=== PATIENT | female | born 1950 | race Caucasian/White ===

== ENCOUNTER 2018-09-13 11:39 | Outpatient (CLI) | payer MEDICARE ==
--- NOTE | 2018-09-13 14:43 | ULT ---
CAROTID DOPPLER ULTRASOUND: HISTORY: Bilateral carotid artery disease. TECHNIQUE: Wynn scale, color flow, and spectral Doppler imaging of the extracranial carotid artery systems is pe rformed bilaterally. FINDINGS: There is plaque formation on either side. There is occlusion of the right internal carotid artery, w ithout detection of flow. The peak systolic velocity in the left ICA measures 91 cm/s with an end-diastolic velocity of 29 cm/s . Antegrade flow is demonstrated in the left vertebral artery. There is decreased flow but appears to be antegrade in the right vertebral artery. IMPRESSION: Occlusion of the right internal carotid artery. POS: [facility]
== END 2018-09-13 11:40 | disposition home or self-care (01) ==
LOC: NAV ULT 11:39
PROVIDERS: ATTEND Family Medicine
DX: Z00.00 Encounter for general adult medical examination without abnormal findings (principal); I77.9 Disorder of arteries and arterioles, unspecified; I65.21 Occlusion and stenosis of right carotid artery
CPT/HCPCS: 93880

== ENCOUNTER 2019-10-01 08:45 | Outpatient (CLI) | payer MEDICARE ==
--- NOTE | 2019-10-01 10:22 | ULT ---
Carotid duplex sonogram HISTORY: Vascular disease. Occlusion of the internal carotid artery. FINDINGS: Prominent plaque. Color and spectral Doppler flow demonstrated within the common carotid artery and e xternal carotid artery. Echogenic material again fills the right internal carotid artery without flow visible. Right vertebral artery not visualized. Left: Prominent plaque throughout. Color and spectral Doppler evaluation, peak systolic velocity of 1 24 cm/s, and IC to CC ratio of 1.7 suggest no hemodynamically significant stenosis within the extracranial left ICA. Antegrade flow within the vertebral artery. IMPRESSION: Occlusion of the right internal carotid artery, stable compared to the prior study from 11/13/2017. Prominent plaque throughout each system. No evidence of significant stenosis on the left.
== END 2019-10-01 08:46 | disposition home or self-care (01) ==
LOC: NAV ULT 08:45
PROVIDERS: ATTEND Family Medicine
DX: I77.9 Disorder of arteries and arterioles, unspecified (principal); I65.23 Occlusion and stenosis of bilateral carotid arteries
CPT/HCPCS: 93880

== ENCOUNTER 2023-05-21 18:29 | Emergency (ER) | payer MEDICARE ==
[2023-05-21] MEDS ORDERED: Ondansetron ODT 4 MG TAB ONE (19:03)
== END 2023-05-21 20:18 | disposition home or self-care (01) ==
LOC: NAV ERS 18:29
DX: I10 Essential (primary) hypertension (principal); R11.0 Nausea; I25.10 Atherosclerotic heart disease of native coronary artery without angina pectoris; F17.210 Nicotine dependence, cigarettes, uncomplicated; Z79.899 Other long term (current) drug therapy
CPT/HCPCS: 99283; Q0162

== ENCOUNTER 2023-08-09 14:18 | Emergency (ER) | payer MEDICARE ==
[2023-08-09 14:49] LABS: #Basophils 0.1 thou/uL (0.0-0.2); #Eosinphils 0.1 thou/uL (0.0-0.7); #Lymphocytes 0.7 thou/uL (1.20-3.40); #Monocytes 0.6 thou/uL (0.11-0.59); #Neutrophils 7.1 thou/uL (1.40-6.50); %Basophils 0.8 % (0.0-1.0); %Eosinophils 1.4 % (0.0-10.0); %Lymphocytes 8.5 % (21.0-51.0); %Monocytes 7.4 % (0.0-10.0); Hematocrit 41.3 % (36.0-47.0); Mean Corpuscular HGB CONC 33.9 g/dL (32.0-36.0); Mean Corpuscular Hemoglobin 31.2 pg (27.0-31.0); Mean Corpuscular Volume 92.1 fl (78.0-98.0); Mean Platelet Volume 9.7 fL (7.4-10.4); Platelet Count 125 10x3/uL (130-400); Red Blood Cell (RBC) Count 4.48 mill/uL (4.20-5.40); White Blood Cell (WBC) Count 8.6 10x3/uL (4.8-10.8)
[2023-08-09] MEDS ORDERED: Aspirin Chewable 81 MG TAB ONE (14:51)
[2023-08-09] MEDS ORDERED: Nitroglycerin 2% Ointment 1 INCH/1 GM Packet ONE (14:51)
[2023-08-09 15:04] LABS: ALT (SGPT) 37 U/L (8-55); AST (SGOT) 28 U/L (5-34); Albumin 4.1 g/dL (3.4-4.8); Alkaline Phosphatase 103 U/L (40-110); Anion Gap 14 mmol/L (10-20); BUN (Urea Nitrogen) 21 mg/dL (9.8-20.1); Bilirubin, Total 1.5 mg/dL (0.2-1.2); Calc. Creatinine Clearance 0 mL/min (70-130); Carbon Dioxide 22 mmol/L (23-31); Chloride 103 mmol/L (98-107); Estimated GFR 44; Globulin 2.4 g/dL (2.4-3.5); Glucose 104 mg/dL (83-110); Lipase 92 U/L (8-78); Potassium 4.2 mmol/L (3.5-5.1); Protein, Total 6.5 g/dL (5.8-8.1); Sodium 135 mmol/L (136-145)
[2023-08-09 15:05] LABS: Troponin I Less than 0.010 ng/mL (< 0.028)
[2023-08-09 17:22] LABS: Troponin I Less than 0.010 ng/mL (< 0.028)
[2023-08-10] MEDS ORDERED: Aspirin 325 MG TAB PO SCH (09:00)
[2023-08-10] MEDS ORDERED: Nitroglycerin 2% Ointment 1 INCH/1 GM Packet TOP SCH (12:00)
== END 2023-08-09 17:22 | disposition short-term general hospital (02) ==
LOC: NAV ERS 14:18
DX: R07.89 Other chest pain (principal); I10 Essential (primary) hypertension; I25.10 Atherosclerotic heart disease of native coronary artery without angina pectoris; F17.210 Nicotine dependence, cigarettes, uncomplicated; Z79.82 Long term (current) use of aspirin; Z79.899 Other long term (current) drug therapy
CPT/HCPCS: 71045; 80053; 83690; 84484; 85025; 93005

== ENCOUNTER 2024-02-29 20:48 | Emergency (ER) | payer MEDICARE ==
[2024-02-29 21:17] LABS: #Basophils 0.1 thou/uL (0.0-0.2); #Eosinphils 0.4 thou/uL (0.0-0.7); #Lymphocytes 2.6 thou/uL (1.20-3.40); #Monocytes 0.5 thou/uL (0.11-0.59); #Neutrophils 5.2 thou/uL (1.40-6.50); %Basophils 1.3 % (0.0-1.0); %Eosinophils 4.3 % (0.0-10.0); %Lymphocytes 29.9 % (21.0-51.0); %Monocytes 5.3 % (0.0-10.0); %Neutrophils 59.2 % (42.0-75.0); Hematocrit 37.9 % (36.0-47.0); Hemoglobin 12.3 g/dL (12.0-16.0); Mean Corpuscular HGB CONC 32.4 g/dL (32.0-36.0); Mean Corpuscular Hemoglobin 29.6 pg (27.0-31.0); Mean Corpuscular Volume 91.3 fl (78.0-98.0); Mean Platelet Volume 7.3 fL (7.4-10.4); Platelet Count 153 10x3/uL (130-400); RBC Distribution Width 12.1 % (11.5-14.5); Red Blood Cell (RBC) Count 4.15 mill/uL (4.20-5.40); White Blood Cell (WBC) Count 8.7 10x3/uL (4.8-10.8)
[2024-02-29 21:30] LABS: Bilirubin Negative (Negative); Blood, Urine Trace (Negative); Clarity Clear (Clear); Glucose, Urine (Dipstick) Negative (Negative); Ketone, Urine Negative (Negative); Leukocyte Negative (Negative); Nitrite Negative (Negative); Protein, Urine (Dipstick) Negative (Neg-Trace); Urobilinogen 0.2 mg/dL (Less than 2)
[2024-02-29 21:34] LABS: CAUTI Indications for Culture Fever or rigors; RBC/HPF 0-3 HPF (0-3); Squamous Epithelial 0-3 HPF (0-3); WBC/HPF None Seen HPF (0-3)
[2024-02-29 21:35] LABS: Bacteria/HPF None Seen HPF (None Seen); Urine Culture Reflex No No
[2024-02-29 21:35] LABS: ALT (SGPT) 21 U/L (8-55); AST (SGOT) 19 U/L (5-34); Albumin 3.9 g/dL (3.4-4.8); Alkaline Phosphatase 79 U/L (40-110); Anion Gap 13 mmol/L (10-20); BUN (Urea Nitrogen) 24 mg/dL (9.8-20.1); Calc. Creatinine Clearance 0 mL/min (70-130); Calcium 9.3 mg/dL (7.8-10.44); Carbon Dioxide 21 mmol/L (23-31); Chloride 99 mmol/L (98-107); Estimated GFR 53; Globulin 2.5 g/dL (2.4-3.5); Glucose 78 mg/dL (83-110); Potassium 4.1 mmol/L (3.5-5.1); Protein, Total 6.4 g/dL (5.8-8.1); Sodium 129 mmol/L (136-145)
[2024-02-29] MEDS ORDERED: Hydrochlorothiazide 25 MG TAB ONE (21:37)
== END 2024-02-29 23:50 | disposition home or self-care (01) ==
LOC: NAV ERS 20:48
DX: I10 Essential (primary) hypertension (principal); E78.00 Pure hypercholesterolemia, unspecified; F17.210 Nicotine dependence, cigarettes, uncomplicated; I25.10 Atherosclerotic heart disease of native coronary artery without angina pectoris; Z79.82 Long term (current) use of aspirin; Z79.899 Other long term (current) drug therapy
CPT/HCPCS: 80053; 81001; 84443; 85025; 99284

== ENCOUNTER 2024-06-26 21:20 | Emergency (ER) | payer MEDICARE | END 2024-06-26 22:42 | disposition home or self-care (01) | LOC: NAV ERS 21:20 | DX: I10 Essential (primary) hypertension (principal); E78.00 Pure hypercholesterolemia, unspecified; I25.10 Atherosclerotic heart disease of native coronary artery without angina pectoris; F17.210 Nicotine dependence, cigarettes, uncomplicated; Z79.899 Other long term (current) drug therapy; Z79.82 Long term (current) use of aspirin | CPT/HCPCS: 99283 ==

== ENCOUNTER 2024-07-27 17:58 | Emergency (ER) | payer MEDICARE ==
[~2024-07-27 17:58] MED LIST: Iopamidol 370 76% 100 ML VIAL ONE
[2024-07-27 18:17] LABS: #Basophils 0.1 thou/uL (0.0-0.2); #Eosinophils 0.7 thou/uL (0.0-0.7); #Lymphocytes 2.5 thou/uL (1.20-3.40); #Monocytes 0.4 thou/uL (0.11-0.59); #Neutrophils 4.2 thou/uL (1.40-6.50); %Basophils 1.4 % (0.0-1.0); %Eosinophils 9.3 % (0.0-10.0); %Lymphocytes 30.9 % (21.0-51.0); %Monocytes 5.4 % (0.0-10.0); Hematocrit 35.6 % (36.0-47.0); Hemoglobin 11.6 g/dL (12.0-16.0); Mean Corpuscular HGB CONC 32.5 g/dL (32.0-36.0); Mean Corpuscular Hemoglobin 29.5 pg (27.0-31.0); Mean Corpuscular Volume 90.9 fl (78.0-98.0); Mean Platelet Volume 8.2 fL (7.4-10.4); Platelet Count 156 10x3/uL (130-400); RBC Distribution Width 11.5 % (11.5-14.5); Red Blood Cell (RBC) Count 3.92 mill/uL (4.20-5.40)
[2024-07-27 18:27] LABS: INR-International Normal Ratio 1.1; PTT 30.2 sec (22.9-36.1); Prothrombin Time 13.9 sec (12.0-14.7)
[2024-07-27 18:36] LABS: Albumin 3.4 g/dL (3.4-4.8); Anion Gap 15 mmol/L (10-20); BUN (Urea Nitrogen) 33 mg/dL (9.8-20.1); Bilirubin, Total 0.8 mg/dL (0.2-1.2); Calc. Creatinine Clearance 0 mL/min (70-130); Calcium 8.9 mg/dL (7.8-10.44); Carbon Dioxide 21 mmol/L (23-31); Chloride 104 mmol/L (98-107); Estimated GFR 24; Globulin 2.3 g/dL (2.4-3.5); Glucose 109 mg/dL (83-110); Potassium 4.9 mmol/L (3.5-5.1); Protein, Total 5.7 g/dL (5.8-8.1); Sodium 135 mmol/L (136-145); Troponin I 0.014 ng/mL (< 0.028)
[2024-07-27 18:37] LABS: ALT (SGPT) 10 U/L (8-55); AST (SGOT) 14 U/L (5-34); Alkaline Phosphatase 74 U/L (40-110)
[2024-07-27] MEDS ORDERED: Nitroglycerin 2% Ointment 1 INCH/1 GM Packet ONE ×3 (19:04→22:46)
[2024-07-27] MEDS ORDERED: Aspirin Chewable 81 MG TAB ONE (19:04)
[2024-07-27] MEDS ORDERED: hydrALAZINE 20 MG/ML VIAL ONE (20:14)
== END 2024-07-27 22:55 | disposition short-term general hospital (02) ==
LOC: NAV ERS 17:58
DX: R20.2 Paresthesia of skin (principal); N28.9 Disorder of kidney and ureter, unspecified; I10 Essential (primary) hypertension; E78.00 Pure hypercholesterolemia, unspecified; F17.210 Nicotine dependence, cigarettes, uncomplicated; Z79.899 Other long term (current) drug therapy; Z79.82 Long term (current) use of aspirin; I65.23 Occlusion and stenosis of bilateral carotid arteries
CPT/HCPCS: 70450; 70496; 70498; 80053; 82962; 84484 ×2; 85025; 85610; 85730; 93005; 99285; J0360; Q9967; 36416